=== PATIENT | male | born 1945 | race Asian ===

== ENCOUNTER 2016-12-12 10:25 | Emergency (ER) | payer OTHER ==
[2016-12-12] MEDS ORDERED: ONDANSETRON 4 MG/2 ML VIAL IVP ONE (10:57)
[2016-12-12] MEDS ORDERED: HYDROmorphONE/DILAUDID 1 MG/ML SYR IVP ONE (11:05)
[2016-12-12 11:10] LABS: % IMMATURE GRANULYOCYTES 0.4 % (0.0-1.1); ABSOLUTE IMMATURE GRANULOCYTES 0.03 10^3/uL (0.00-0.10); ADD DIFF? NO; ADD MORPH? NO; ADD SCAN? NO; ATYPICAL LYMPHOCYTE FLAG 0 (0-99); FRAGMENT RBC FLAG 0 (0-99); HEMATOCRIT 42.9 % (40.0-51.0); HEMOGLOBIN 14.8 g/dL (13.7-17.5); LEFT SHIFT FLG 0 (0-99); LIPEMIA HEMOLYSIS FLAG 90 (0-99); MEAN CELL HEMOGLOBIN 33.1 pg (27.9-34.1); MEAN CELL HEMOGLOBIN CONCENTR. 34.5 g/dL (32.4-36.7); MEAN PLATELET VOLUME 11.8 fL (8.7-11.7); PLATELET CLUMPS FLAG 0 (0-99); PLATELET COUNT 175 10^3/uL (150-400); RED BLOOD CELL COUNT 4.47 10^6/uL (4.40-6.38); RED CELL DISTRIBUTION WIDTH 12.4 % (11.5-15.2)
--- NOTE | 2016-12-12 11:10 | EDPHY ---
H & P Stated Complaint: fall frm standg.- pallette fell on L foot pt fell back on R elbow +deformit Time Seen by Provider: 12/12/16 10:59 HPI/ROS: CHIEF COMPLAINT: Right elbow pain HISTORY OF PRESENT ILLNESS: The patient is a 71-year-old man who got his foot pinned under a palate and then fell back onto his right elbow. He has a deformity to his right elbow. Normal sensation and movement in his wrist and hand. He denies other injuries. He did not hit his head. REVIEW OF SYSTEMS: Constitutional: denies: chills, fever, recent illness, recent injury EENTM: denies: blurred vision, double vision, nose congestion Respiratory: denies: cough, shortness of breath Cardiac: denies: chest pain, irregular heart rate, lightheadedness, palpitations Gastrointestinal/Abdominal: denies: abdominal pain, diarrhea, nausea, vomiting, blood streaked stools Genitourinary: denies: dysuria, frequency, hematuria, pain Musculoskeletal: See HPI Skin: denies: lesions, rash, jaundice, bruising Neurological: denies: headache, numbness, paresthesia, tingling, dizziness, weakness Hematologic/Lymphatic: denies: blood clots, easy bleeding, easy bruising Immunologic/allergic: denies: HIV/AIDS, transplant EXAM: GENERAL: Well-appearing, well-nourished and in no acute distress. HEAD: Atraumatic, normocephalic. EYES: Pupils equal round and reactive to light, extraocular movements intact, sclera anicteric, conjunctiva are normal. ENT: TMs normal, nares patent, oropharynx clear without exudates. Moist mucous membranes. NECK: Normal range of motion, supple without lymphadenopathy or JVD. LUNGS: Breath sounds clear to auscultation bilaterally and equal. No wheezes rales or rhonchi. HEART: Regular rate and rhythm without murmurs, rubs or gallops. ABDOMEN: Soft, nontender, normoactive bowel sounds. No guarding, no rebound. No masses appreciated. BACK: No CVA tenderness, no spinal tenderness, step-offs or deformities EXTREMITIES: Right elbow deformity and dislocation. Posterior abrasion does not appear to be an open fracture. Probed with sterile Q-tip. NEUROLOGICAL: Cranial nerves II through XII grossly intact. Normal speech, normal gait. 5/5 strength, normal movement in all extremities, normal sensation PSYCH: Normal mood, normal affect. SKIN: Warm, dry, normal turgor, no visible rashes or lesions. Source: Patient Exam Limitations: No limitations - Personal History Current Tetanus/Diphtheria Vaccine: Unsure Current Tetanus Diphtheria and Acellular Pertussis (TDAP): Unsure - Medical/Surgical History Hx Asthma: No Hx Chronic Respiratory Disease: No Hx Diabetes: Yes Hx Cardiac Disease: No Hx Renal Disease: No Hx Cirrhosis: No Hx Alcoholism: No Hx HIV/AIDS: No Hx Splenectomy or Spleen Trauma: No Other PMH: NIDDM. hyperlipidemia - Family History Significant Family History: No pertinent family hx - Social History Smoking Status: Never smoked Alcohol Use: Sober Drug Use: None Constitutional: Initial Vital Signs Temperature (C) 37.0 C 12/12/16 10:43 Heart Rate 85 12/12/16 10:43 Respiratory Rate 16 12/12/16 10:43 Blood Pressure 134/72 H 12/12/16 10:43 O2 Sat (%) 96 12/12/16 10:43 O2 Delivery Mode [Post Room Air Procedure 3rd] O2 Delivery Mode [Post Non-Rebreather Mask Procedure 2nd] O2 Delivery Mode [Post Non-Rebreather Mask Procedure 1st] O2 Delivery Mode [Procedural Non-Rebreather Mask 3rd] O2 Delivery Mode [Procedural Non-Rebreather Mask 2nd] O2 Delivery Mode [Procedural Non-Rebreather Mask 1st] O2 Delivery Mode [.Immediate Non-Rebreather Mask Pre-Procedure] O2 Delivery Mode Room Air O2 (L/minute) [Post Procedure 15 2nd] O2 (L/minute) [Post Procedure 15 1st] O2 (L/minute) [Procedural 3rd] 15 O2 (L/minute) [Procedural 2nd] 15 O2 (L/minute) [Procedural 1st] 15 O2 (L/minute) [.Immediate Pre- 15 Procedure] Allergies/Adverse Reactions: No Known Allergies Allergy (Unverified 12/12/16 10:42) Home Medications: Medication Instructions Recorded Hydrocodone/APAP 5/325 [Brogan 1 - 2 tab PO Q4H PRN #10 tab 12/12/16 5/325 (RX)] Lipitor 12/12/16 Metformin HCl 12/12/16 Medical Decision Making - Diagnostics Imaging Results: Imaging Impressions Elbow X-Ray 12/12/16 10:36 Impression: Lateral elbow dislocation. Elbow X-Ray 12/12/16 11:41 Impression: Successful reduction. Ulnar collateral ligament avulsion. Procedures: Procedure: Procedural sedation. Indication: Dislocation reduction. A pre-sedation evaluation was completed on the patient just prior to the procedure. Patient is an appropriate candidate for procedural sedation with a normal 3-3-2 rule assessment and a Mallampati airway score of class to. The risks of the sedation were discussed including but not limited to dysrhythmia, need for airway intervention or general anesthesia, disability, ; and verbal consent obtained. A timeout was observed and patient's identity confirmed. The patient was sedated with ketamine 70 mg. The patient was monitored with continuous pulse oximetry, capnography, and shelter monitor. There were no complications and no significant hypoxemia. I remained at the bedside for the sedation. The total time I spent in the procedural sedation was 16 minutes. Dislocation reduction: Patient's elbow was reduced with traction and direct pressure. C-arm was used. Post reduction films are successful with an ulnar collateral ligament avulsion. He was placed in a splint and will follow up with Orthopedics. Procedure: Splint placement. A posterior long arm and sling splint was applied. After application of the splint I returned and re-examined the patient. The splint was adequately immobilizing the joint and distal to the splint the patient's circulation and sensation was intact. Joint aspiration: Patient's elbow was injected with sterile saline under sterile technique while he was sedated. There does not appear to be any communication with the abrasion on his elbow. This was cleaned and probed with sterile Q-tips as well. ED Course/Re-evaluation: I will sedate the patient to obtain better x-ray images and reduce his elbow and likely injected joint to confirm that there is no open fracture or dislocation. While he was sedated I did inject his elbow with sterile saline. There is no visible communication with the abrasion on his elbow. He does not appear to have an open fracture dislocation. 12:15 p.m. patient is feeling much better. We discussed his fracture and follow up with Orthopedics. He is happy with this and declines further workup or testing. He declines imaging of his ankles. 1:15 p.m. I spoke with Dr. Brown who will follow up later this week. Differential Diagnosis: Partial list of the Differential diagnosis considered include but were not limited to; elbow dislocation, fracture, vascular injury and although unlikely based on the history and physical exam, I also considered shoulder injury, ankle injury, head injury. - Data Points Laboratory Results: Laboratory Results 12/12/16 10:25 12/12/16 10:25 12/12/16 12/12/16 10:25 10:25 WBC 7.56 10^3/uL 10^3/uL (3.80-9.50) RBC 4.47 10^6/uL 10^6/uL (4.40-6.38) Hgb 14.8 g/dL g/dL (13.7-17.5) Hct 42.9 % % (40.0-51.0) MCV 96.0 fL fL (81.5-99.8) MCH 33.1 pg pg (27.9-34.1) MCHC 34.5 g/dL g/dL (32.4-36.7) RDW 12.4 % % (11.5-15.2) Plt Count 175 10^3/uL 10^3/uL (150-400) MPV 11.8 fL H fL (8.7-11.7) Neut % (Auto) 79.2 % H % (39.3-74.2) Lymph % (Auto) 14.9 % L % (15.0-45.0) [place] % (Auto) 4.9 % % (4.5-13.0) Eos % (Auto) 0.1 % L % (0.6-7.6) Baso % (Auto) 0.5 % % (0.3-1.7) Nucleat RBC Rel Count 0.0 % % (0.0-0.2) Absolute Neuts (auto) 5.98 10^3/uL 10^3/uL (1.70-6.50) Absolute Lymphs (auto) 1.13 10^3/uL 10^3/uL (1.00-3.00) Absolute Monos (auto) 0.37 10^3/uL 10^3/uL (0.30-0.80) Absolute Eos (auto) 0.01 10^3/uL L 10^3/uL (0.03-0.40) Absolute Basos (auto) 0.04 10^3/uL 10^3/uL (0.02-0.10) Absolute Nucleated RBC 0.00 10^3/uL 10^3/uL (0-0.01) Immature Gran % 0.4 % % (0.0-1.1) Immature Gran # 0.03 10^3/uL 10^3/uL (0.00-0.10) Sodium 139 mEq/L mEq/L (134-144) Potassium 4.3 mEq/L mEq/L (3.5-5.2) Chloride 102 mEq/L mEq/L (97-110) Carbon Dioxide 23 mEq/l mEq/l (22-31) Anion Gap 14 mEq/L mEq/L (8-16) BUN 22 mg/dL mg/dL (7-23) Creatinine 0.8 mg/dL mg/dL (0.7-1.3) Estimated GFR > 60 Glucose 156 mg/dL H mg/dL (70-100) Calcium 9.8 mg/dL mg/dL (8.5-10.4) Medications Given: Discontinued Medications Hydromorphone HCl (Dilaudid) 1 mg IVP EDNOW ONE Stop: 12/12/16 11:06 Last Admin: 12/12/16 11:12 Dose: 1 mg Ketamine HCl (Ketamine) 70 mg IVP EDNOW ONE Stop: 12/12/16 12:12 Last Admin: 12/12/16 11:35 Dose: 70 mg Ondansetron HCl (Zofran) 4 mg IVP EDNOW ONE Stop: 12/12/16 10:58 Last Admin: 12/12/16 10:57 Dose: 4 mg Departure - Departure Disposition: Home, Routine, Self-Care Clinical Impression: Elbow dislocation Qualifiers: Encounter type: initial encounter Laterality: right Qualified Code(s): S53.104A - Unspecified dislocation of right ulnohumeral joint, initial encounter Condition: Fair Instructions: Elbow Dislocation (ED) Referrals: Patient,NotPresent [Unknown] - As per Instructions Jose Brown MD [Medical Doctor] - As per Instructions Prescriptions: Hydrocodone/APAP 5/325 [Brogan 5/325 (RX)] 1 - 2 tab PO Q4H PRN #10 tab PRN Reason: Pain, Moderate
[2016-12-12 11:15] LABS: ANION GAP 14 mEq/L (8-16); CALCIUM 9.8 mg/dL (8.5-10.4); CARBON DIOXIDE 23 mEq/l (22-31); CHLORIDE 102 mEq/L (97-110); CREATININE 0.8 mg/dL (0.7-1.3); GLOMERULAR FILTRATION RATE > 60; GLUCOSE 156 mg/dL (70-100); POTASSIUM 4.3 mEq/L (3.5-5.2); SODIUM 139 mEq/L (134-144)
[2016-12-12] MEDS ORDERED: KETAMINE 100 MG/10 ML SYR ONE (11:25)
[2016-12-12] MEDS ORDERED: PROPOFOL 200 MG/20 ML VIAL ONE (11:25)
[2016-12-12] MEDS ORDERED: KETAMINE 100 MG/10 ML SYR IVP ONE (12:11)
[2016-12-12 12:21] VITALS: RESP 18
[2016-12-12 13:09] VITALS: BP 133/74; PULSE 69; TEMP 97.9; O2SAT 92
== END 2016-12-12 13:10 | disposition home or self-care (01) ==
PROC: 0RSLXZZ Reposition Right Elbow Joint, External Approach (ICD-10-PCS; principal; 2016-12-12)
DX: S53.104A Unspecified dislocation of right ulnohumeral joint, initial encounter (principal); E11.9 Type 2 diabetes mellitus without complications; Z79.84 Long term (current) use of oral hypoglycemic drugs; W18.39XA Other fall on same level, initial encounter
CPT/HCPCS: 96374; A4565; J1170; J2405; J2704